=== PATIENT | female | born 1990 | race Caucasian/White ===

== ENCOUNTER 2019-12-22 00:26 | Emergency (ER) | payer OTHER ==
[~2019-12-22] VITALS: Ht 172.7 cm; Wt 99.8 kg
[2019-12-22 00:40] VITALS: BP 119/76
--- NOTE | 2019-12-22 00:44 | NUR ---
PT AMBULATED TO BED
[2019-12-22 01:23] LABS: APPEARANCE,URINE CLOUDY (CLEAR); BILIRUBIN,URINE NEGATIVE (NEGATIVE); BLOOD, URINE NEGATIVE (NEGATIVE); COLOR,URINE YELLOW (YELLOW); LEUKOCYTE ESTERASE ,URINE NEGATIVE (NEGATIVE); NITRITE, URINE NEGATIVE (NEGATIVE); UGLUCOSE NEGATIVE (NEGATIVE)
--- NOTE | 2019-12-22 01:28 | NUR ---
29 YEAR OLD FEMALE STATES THAT SHE WANTS TO DO TESTING FOR CHLAMYDIA. PATIENT DENIES ANY PAIN. PATIENT AOX4, BREATHING EVEN AND UNLABORED, SKIN WARM AND DRY. BED IN LOWEST POSITION, LOCKED, BED RAIL UPX1 PMH - DENIES MEDS - DENIES ALLERGIES - NKA
[2019-12-22] MEDS ORDERED: cefTRIAXone 250 MG in LIDOCAINE MPF 1% 0.9 ML IM ONE (01:35)
[2019-12-22] MEDS ORDERED: AZITHROMYCIN 250 MG TAB PO ONE (01:35)
[2019-12-22 01:37] LABS: WBC,URINE 0-5 /HPF (0-5)
[2019-12-22] MEDS ORDERED: cefTRIAXone 250 MG VIAL ONE (01:39)
[2019-12-22] MEDS ORDERED: LIDOCAINE MPF 1% 5 ML ONE (01:40)
[2019-12-22 02:00] VITALS: BP 119/76
--- NOTE | 2019-12-22 02:00 | NUR ---
Patient discharged with v/s stable. Written and verbal after care instructions ABOUT CHLAMYDIA given and explained. Patient verbalized understanding. Ambulatory with steady gait. All questions addressed prior to discharge. Advised to follow up with PMD.
[2019-12-24 08:13] LABS: CHLAMYDIA TRACHOMATIS AMP DNA Positive (Negative)
--- NOTE | 2019-12-24 14:12 | NUR ---
DR LYLE MADE AWARE OF +GONORRHEA AND +CHLAMYDIA, PT WAS CALLED TO MAKE AWARE THAT PT WAS ALREADY TREATED WITH AZITHROMYCIN AND CEFTRIAXONE.
== END 2019-12-22 02:20 | disposition home or self-care (01) ==
LOC: MED 00:26
DX: R36.9 Urethral discharge, unspecified (principal); Z11.8 Encounter for screening for other infectious and parasitic diseases
CPT/HCPCS: 36415; 81001; 81025; 87491; 96372; 99283; J0696; J2001